=== PATIENT | male | born 1965 | race Caucasian/White ===

== ENCOUNTER 2020-05-24 16:04 | Emergency (ER) | payer MEDICARE ==
[~2020-05-24] VITALS: Ht 185.4 cm; Wt 128.0 kg
--- NOTE | 2020-05-24 16:20 | NUR ---
THIS IS A 55 YO M BIB EMS FROM [facility] W/ C/O FATIGUE SINCE YESTERDAY AND INTERMITTENT RT SIDED CP. PT IS VISITING FROM [facility]. PT HAS HX OF LVAD, PSEUDOMONAS, HTN, HLD, CVA (NO DEFICITS), MIX5. PT ABLE TO TRANSFER SELF FROM EMS [facility] TO ED [facility] W/O INCIDENT. PT PRESENTS W/ PORT WHICH HE REPORTS HE IS GETTING FORTAZ X1.5 YEARS. PT VSS, NADN. PT AWAKE, ALERT AND ORIENTED. AWAITING ED EVAL.
--- NOTE | 2020-05-24 16:21 | NUR ---
PT REPORTS HAD 1ST LVAD IN 2013 AND SECOND 2019
--- NOTE | 2020-05-24 16:21 | NUR ---
PT MEDICATIONS INCLUDE: CLONIDINE CARVEDIOLOL RANEX WARFARIN FORTAZ ISOSORBIDE BUMEX SPIRONLACTONE PRIMARY: DR.LUZ Amaya/ PETE LE
--- NOTE | 2020-05-24 16:32 | NUR ---
ROSE LEVY AT BEDSIDE.
[2020-05-24] MEDS ORDERED: MORPHINE SULFATE 4 MG/ML, 1ML ONE (16:37)
[2020-05-24] MEDS ORDERED: ONDANSETRON 2MG/ML, 2ML ONE (16:37)
--- NOTE | 2020-05-24 16:49 | NUR ---
PER ROSE LEVY OKAY TO USE PTS PORT. FLUSHES W/ BLOOD RETURN. LABS DRAWN OFF EASTABLISHED LINE. PT MEDICATED PER EMAR. PT RESTING ON GURNEY W/ CALL LIGHT IN REACH AND SIDE RAILS UPX2. CONNECTED TO ALL MONITORING. ROLLY HEADLEY.
[2020-05-24 16:55] LABS: BASOPHILS % (AUTO) 1 % (0-1); EOSINOPHILS % (AUTO) 3 % (1-7); LYMPHOCYTES % (AUTO) 14 % (22-44); MEAN CORPUSCULAR HEMOGLOBIN 24.3 pg (27.5-34.5); MEAN CORPUSCULAR HGB CONC 31.6 g/dL (33.2-36.2); MEAN PLATELET VOLUME 8.4 fL (7.4-10.4); MONOCYTES % (AUTO) 8 % (2-9); NEUTROPHILS % (AUTO) 75 % (42-75); PLATELET COUNT 217 x10^3/uL (130-400); RED BLOOD COUNT 3.73 x10^6/uL (4.38-5.82); RED CELL DISTRIBUTION WIDTH 20.8 % (9.4-14.8)
[2020-05-24 16:57] LABS: MD MORPH REVIEW ONLY
[2020-05-24] MEDS ORDERED: MORPHINE SULFATE 4 MG/ML, 1ML IVPush PRN (17:00)
[2020-05-24] MEDS ORDERED: ONDANSETRON 2MG/ML, 2ML IVPush ONE (17:00)
[2020-05-24 17:05] LABS: ALANINE AMINOTRANSFERASE 36 U/L (12-78); ALBUMIN 3.1 g/dL (3.4-5.0); ANION GAP 7 mmol/L (5-15); CALCIUM 7.9 mg/dL (8.5-10.1); CHLORIDE 112 mmol/L (98-107); CREATININE 2.27 mg/dL (0.7-1.3)
[2020-05-24 17:09] LABS: ALKALINE PHOSPHATASE 99 U/L (45-117); BILIRUBIN,TOTAL 0.8 mg/dL (0.2-1.0); TOTAL PROTEIN 6.5 g/dL (6.4-8.2)
[2020-05-24 17:12] LABS: TROPONIN I 0.231 ng/mL (0.000-0.045)
[2020-05-24 17:18] LABS: ANISOCYTOSIS 1+; HYPOCHROMIA 1+; MICROCYTOSIS 1+; OVALOCYTES 1+; POLYCHROMASIA 1+
[2020-05-24 17:19] LABS: <PLATELET ESTIMATE> ADEQUATE; <PLT MORPHOLOGY> NORMAL PLT MORPH; TEAR DROPS 1+
[2020-05-24 17:56] VITALS: BP 134/91
--- NOTE | 2020-05-24 18:24 | NUR ---
PER PT OK TO DC. PT VERBALIZED UNDERSTANDING OF DC INSTRUCTION TO F/U CARE UPON RETURNING TO [facility]. PT VSS, ROLLY. PT WHEELED TO DC DESK PER PT REQUEST. PT LEAVING W/ TO RETURN HOME TONIGHT.
== END 2020-05-24 18:26 | disposition home or self-care (01) ==
LOC: ED 18:20
DX: R07.2 Precordial pain (principal); D64.9 Anemia, unspecified; R74.8 Abnormal levels of other serum enzymes; R06.02 Shortness of breath; R94.31 Abnormal electrocardiogram [ECG] [EKG]
CPT/HCPCS: 36415; 71045; 80053; 83880; 84484; 85025; 93005; 96374; 96375; 99285; J2270; J2405